=== PATIENT | male | born 1925 | race Caucasian/White ===

== ENCOUNTER 2017-01-07 18:59 | Observation (INO) | payer MEDICARE ==
[~2017-01-07 18:59] MED LIST: ACETAMINOP GT; ACETAMINOPHEN500 MG PO; ADULT LOW DOSE81 M1 PO; ASPIR 8181 MG; ATORVASTATIN CA10 M1 PO; AVELOX400 MG PO; CELEXA40 MG; CHONDROITIN SU250 MG PO; CLOPIDOGREL75 M1 PO; COLACE100 MG; CYMBALTA60 M1 PO; CYMBALTA60 MG PO; EQL FISH OIL 1,1 CA1 PO; FISH OIL 1,2001 EAC4 PO; FISH OIL 11000 MG/CA PO; GLUCOSAMINE H1500 MG PO; HUMALOG100 UNITS/ SC; IRON1 TA1 PO; KEPPRA100 MG/1 M GT; LAXATIVE25 M1 PO; LEVAQUIN750 M1 PO; LEVETIRACETAM250 M1 PO; LIDODERM TOP; LIPITOR10 M1 PO; LISINOPRIL5 MG; LISINOPRIL5 MG PO; LOW-DOSE ASPIRI81 MG PO; MAGNESIUM400 MG PO; METAMUCIL425 GM PO; METOPROLOL TART25 MG; METOPROLOL TART25 MG PO; MIDODRINE HCL2.5 M1 PO; MIRALAX17 G2 PO; MOTRIN100 MG PO; MYRBETRIQ50 M1 PO; NIFEREX-150150 MG; NIGHTTIME SLEEP50 M1 PO; NITROGLYCERIN0.4 M1 SL; NITROGLYCERIN0.4 M2 SL; NORCO 5-325 TA1 EACH PO; PANTOPRAZOLE SO40 M3 PO; RANEXA500 MG PO; ROXICODONE5 M2 PO; SIMVASTATIN20 MG PO; TAMSULOSIN HCL0.4 M1 PO; TYLENOL EXTRA500 M1 PO; TYLENOL PM EX-1 EAC1 PO; TYLENOL PM EX-1 EACH PO; TYLENOL325 M1 PO; TYLENOL325 M2 PO; VESICARE5 M1 PO; VITAMIN D1000 UNIT PO; VITAMIN D31000 UNI4 PO; VITAMIN D3400 UNI5 PO; VITAMIN E PO; VITAMIN E200 UNIT PO; VITAMIN E400 UNI4 PO; WELLBUTRIN SR100 M2 PO; XALATAN2.5 M1 LEFT EYE; ZEGERID 40 MG1 EAC1 GT; ZOCOR20 MG; [UNRECOGNIZED DRUG - REMARK]
[2017-01-07 19:56] LABS: BASO % 1.1 % (0-2); BASO ABSOLUTE COUNT 0.1 tho/cmm (0.0-0.2); EOS % 1.1 % (0-7); EOSINOPHIL ABSOLUTE COUNT 0.1 tho/cmm (0.0-0.7); HCT-HEMATOCRIT 36.4 % (36.0-53.5); HGB-HEMOGLOBIN 11.8 gm/dl (13.5-17.0); IMMATURE GRANULOCYTES ABSOLUTE 0.02 tho/cmm (0-0.03); IMMATURE GRANULOCYTES PERCENT 0.4 % (0-0.3); LYMPH % 22.9 % (20-45); LYMPH ABSOLUTE COUNT 1.1 tho/cmm (0.8-4.5); MCH (MEAN CORPUSCULAR HGB) 29.9 pg (28.0-32.0); MCHC MEAN CORPUSCULAR HGB CONC 32.4 % (32.0-36.0); MCV (MEAN CELL VOLUME) 92.2 fl (82.0-96.0); MEAN PLATELET VOLUME 11.8 cmc (9.4-12.4); MONOCYTE ABSOLUTE COUNT 0.8 tho/cmm (0.0-1.2); NEUTROPHIL ABSOLUTE COUNT 2.8 tho/cmm (1.6-8.0); NEUTROPHIL-AUTOMATED 2.8 tho/cmm (1.6-8.0); NEUTROPHILS % 58.5 % (40-80); PLATELET COUNT 108 tho/cmm (150-450); RED BLOOD COUNT 3.95 mil/cmm (4.40-5.70); RED CELL DISTRIBUTION WIDTH 13.9 % (12.4-16.4); WHITE BLOOD COUNT 4.8 tho/cmm (4.0-10.0)
[2017-01-07 20:12] LABS: ALBUMIN 3.4 g/dl (3.5-5.0); ALKALINE PHOSPHATASE 101 U/L (33-138); ALT/SGPT 21 U/L (12-78); ANION GAP 13 mmol/L (0-20); AST/SGOT 20 U/L (10-40); BILIRUBIN,TOTAL 0.4 mg/dl (0.0-1.5); BLOOD UREA NITROGEN 27 mg/dl (6-24); CALCIUM 8.7 mg/dl (8.5-10.5); CARBON DIOXIDE-VENOUS 24 mmol/L (22-32); CHLORIDE 110 mmol/l (96-110); CREATININE 1.64 mg/dl (0.60-1.30); GLUCOSE 97 mg/dL (70-110); POTASSIUM 5.1 mmol/L (3.7-5.1); SODIUM 142 mmol/L (135-145); eGFR VALUE FOR BLACK 42 mL/Min
[2017-01-08 04:40] LABS: BASO % 0.7 % (0-2); EOS % 0.9 % (0-7); EOSINOPHIL ABSOLUTE COUNT 0.1 tho/cmm (0.0-0.7); HCT-HEMATOCRIT 38.1 % (36.0-53.5); IMMATURE GRANULOCYTES ABSOLUTE 0.01 tho/cmm (0-0.03); IMMATURE GRANULOCYTES PERCENT 0.2 % (0-0.3); LYMPH % 24.3 % (20-45); LYMPH ABSOLUTE COUNT 1.3 tho/cmm (0.8-4.5); MCH (MEAN CORPUSCULAR HGB) 29.3 pg (28.0-32.0); MCHC MEAN CORPUSCULAR HGB CONC 31.5 % (32.0-36.0); MCV (MEAN CELL VOLUME) 92.9 fl (82.0-96.0); MEAN PLATELET VOLUME 11.3 cmc (9.4-12.4); MONO % 16.8 % (0-12); MONOCYTE ABSOLUTE COUNT 0.9 tho/cmm (0.0-1.2); NEUTROPHIL ABSOLUTE COUNT 3.1 tho/cmm (1.6-8.0); NEUTROPHIL-AUTOMATED 3.1 tho/cmm (1.6-8.0); NEUTROPHILS % 57.1 % (40-80); PLATELET COUNT 117 tho/cmm (150-450); RED CELL DISTRIBUTION WIDTH 13.9 % (12.4-16.4); WHITE BLOOD COUNT 5.4 tho/cmm (4.0-10.0)
[2017-01-08 04:42] LABS: ANION GAP 11 mmol/L (0-20); BLOOD UREA NITROGEN 24 mg/dl (6-24); CALCIUM 8.7 mg/dl (8.5-10.5); CARBON DIOXIDE-VENOUS 27 mmol/L (22-32); CHLORIDE 108 mmol/l (96-110); CREATININE 1.39 mg/dl (0.60-1.30); GLUCOSE 118 mg/dL (70-110); POTASSIUM 4.6 mmol/L (3.7-5.1); SODIUM 141 mmol/L (135-145); eGFR VALUE FOR BLACK 52 mL/Min
[2017-05-09] MEDS ORDERED: ATORVASTATIN CA10 M1 PO (12:28)
[2017-05-09] MEDS ORDERED: MYRBETRIQ50 M1 PO (12:44)
[2017-05-09] MEDS ORDERED: ARTIFICIAL TEAR1512 OP (12:45)
== END 2017-01-08 15:24 ==
LOC: EDMED 18:59 → EMR2 21:02 → CAR1 21:45
PROVIDERS: Emergency Medicine; ADMIT Internal Medicine
DX: R55 Syncope and collapse (principal); N17.9 Acute kidney failure, unspecified; K59.00 Constipation, unspecified; I25.10 Atherosclerotic heart disease of native coronary artery without angina pectoris; E11.9 Type 2 diabetes mellitus without complications; N40.0 Benign prostatic hyperplasia without lower urinary tract symptoms; F32.9 Major depressive disorder, single episode, unspecified; Z85.46 Personal history of malignant neoplasm of prostate; Z90.79 Acquired absence of other genital organ(s); Z86.73 Personal history of transient ischemic attack (TIA), and cerebral infarction without residual deficits; Z87.891 Personal history of nicotine dependence; Z88.0 Allergy status to penicillin; Z88.2 Allergy status to sulfonamides; Z79.82 Long term (current) use of aspirin; Z79.899 Other long term (current) drug therapy; Z98.890 Other specified postprocedural states
CPT/HCPCS: G0378; G8978-GP-CJ; G8979-GP-CJ; G8980-GP-CJ; G8987-GO-CJ; G8988-GO-CI; G8989-GO-CJ

== ENCOUNTER 2017-02-20 17:57 | Observation (INO) | payer MEDICARE ==
[2017-02-20 18:36] LABS: BASO % 0.7 % (0-2); EOS % 0.9 % (0-7); EOSINOPHIL ABSOLUTE COUNT 0.1 tho/cmm (0.0-0.7); HCT-HEMATOCRIT 35.1 % (36.0-53.5); HGB-HEMOGLOBIN 11.3 gm/dl (13.5-17.0); IMMATURE GRANULOCYTES ABSOLUTE 0.02 tho/cmm (0-0.03); IMMATURE GRANULOCYTES PERCENT 0.4 % (0-0.3); LYMPH % 20.1 % (20-45); LYMPH ABSOLUTE COUNT 1.1 tho/cmm (0.8-4.5); MCH (MEAN CORPUSCULAR HGB) 29.5 pg (28.0-32.0); MCHC MEAN CORPUSCULAR HGB CONC 32.2 % (32.0-36.0); MCV (MEAN CELL VOLUME) 91.6 fl (82.0-96.0); MEAN PLATELET VOLUME 11.6 cmc (9.4-12.4); MONO % 15.4 % (0-12); MONOCYTE ABSOLUTE COUNT 0.9 tho/cmm (0.0-1.2); NEUTROPHIL ABSOLUTE COUNT 3.5 tho/cmm (1.6-8.0); NEUTROPHIL-AUTOMATED 3.5 tho/cmm (1.6-8.0); NEUTROPHILS % 62.5 % (40-80); PLATELET COUNT 116 tho/cmm (150-450); RED BLOOD COUNT 3.83 mil/cmm (4.40-5.70); RED CELL DISTRIBUTION WIDTH 13.7 % (12.4-16.4); WHITE BLOOD COUNT 5.6 tho/cmm (4.0-10.0)
[2017-02-20 18:56] LABS: ALBUMIN 3.2 g/dl (3.5-5.0); ALKALINE PHOSPHATASE 90 U/L (33-138); ALT/SGPT 19 U/L (12-78); ANION GAP 12 mmol/L (0-20); AST/SGOT 15 U/L (10-40); BILIRUBIN,TOTAL 0.3 mg/dl (0.0-1.5); BLOOD UREA NITROGEN 35 mg/dl (6-24); CALCIUM 8.5 mg/dl (8.5-10.5); CARBON DIOXIDE-VENOUS 27 mmol/L (22-32); CHLORIDE 107 mmol/l (96-110); CREATININE 1.59 mg/dl (0.60-1.30); GLUCOSE 130 mg/dL (70-110); POTASSIUM 4.7 mmol/L (3.7-5.1); SODIUM 141 mmol/L (135-145); eGFR VALUE FOR BLACK 44 mL/Min
[2017-02-21] MEDS ORDERED: RANEXA500 M1 PO (11:34)
[2017-05-09] MEDS ORDERED: ATORVASTATIN CA10 M1 PO (12:28)
[2017-05-09] MEDS ORDERED: MYRBETRIQ50 M1 PO (12:44)
[2017-05-09] MEDS ORDERED: ARTIFICIAL TEAR1512 OP (12:45)
== END 2017-02-21 13:00 ==
LOC: EDMED 17:57 → EMR2 23:27 → 5WD 02-21 01:13
PROVIDERS: Emergency Medicine; ADMIT Internal Medicine Cardiovascular Disease
DX: R07.89 Other chest pain (principal); I25.10 Atherosclerotic heart disease of native coronary artery without angina pectoris; E78.5 Hyperlipidemia, unspecified; N18.3 Chronic kidney disease, stage 3 (moderate); I44.7 Left bundle-branch block, unspecified; Z79.82 Long term (current) use of aspirin; Z79.899 Other long term (current) drug therapy; Z88.0 Allergy status to penicillin; Z88.2 Allergy status to sulfonamides; Z95.1 Presence of aortocoronary bypass graft; Z95.5 Presence of coronary angioplasty implant and graft; Z95.2 Presence of prosthetic heart valve; Z98.890 Other specified postprocedural states
CPT/HCPCS: A9540; A9558; C8929; G0378; J2270